=== PATIENT | female | born 1960 | race Hispanic/Latino ===

== ENCOUNTER 2017-05-28 12:20 | Inpatient (IN) | payer MEDICARE ==
[~2017-05-28] VITALS: Ht 157.5 cm; Wt 82.5 kg
[2017-05-28] MEDS ORDERED: ONDANSETRON HCL MDV 20ML 2 MG/ML VIAL ONE (12:44)
[2017-05-28 12:52] LABS: BASOPHILS % (AUTO) 0.3 % (0.0-5.0); EOSINOPHILS % (AUTO) 2.3 % (0.0-8.0); HEMATOCRIT 38.3 % (36-48); LYMPHOCYTES % (AUTO) 16.9 % (21.0-51.0); MEAN CORPUSCULAR HEMOGLOBIN 29.9 pg (27.0-33.0); MEAN CORPUSCULAR HGB CONC 35.2 g/dL (32.0-36.0); NEUTROPHILS % (AUTO) 75.5 % (40.0-77.0); PLATELET COUNT (AUTO) 329 K/uL (130-400); RED BLOOD CELL COUNT(AUTO) 4.51 MIL/uL (4.00-5.50); RED CELL DISTRIBUTION WIDTH 12.9 % (11.0-15.5); WHITE BLOOD COUNT (AUTO) 9.7 K/uL (4.8-10.8)
[2017-05-28 12:57] LABS: APPEARANCE,URINE Clear (CLEAR); BILIRUBIN,URINE Negative (NEGATIVE); COLOR,URINE Yellow (YELLOW); GLUCOSE, URINE (UA) Negative (NEGATIVE); KETONES,URINE Negative (NEGATIVE); LEUKOCYTE ESTERASE ,URINE Negative (NEGATIVE); NITRATE,URINE Negative (NEGATIVE); OCCULT BLOOD,URINE Negative (NEGATIVE); PROTEIN,URINE Negative (NEGATIVE); UROBILINOGEN,URINE 0.2 mg/dL (0.2-1.0)
[2017-05-28 13:03] LABS: CREATININE 0.9 mg/dL (0.5-1.5); POTASSIUM 3.8 mmol/L (3.5-5.1)
[2017-05-28 13:10] LABS: ALBUMIN 3.6 g/dL (3.5-5.0); BILIRUBIN,TOTAL 0.3 mg/dL (0.2-1.0); TOTAL PROTEIN, SERUM 7.7 g/dL (6.0-8.3)
[2017-05-28 13:23] LABS: CREATINE KINASE MB 0.5 ng/mL (0.5-3.6); CREATINE KINASE, TOTAL 61 U/L (21-232); MYOGLOBIN 26 ng/mL (10-92); TROPONIN I < 0.04 ng/mL (0.00-0.06)
[2017-05-28] MEDS ORDERED: HYOSCYAMINE SULFATE 0.125 MG TAB.SUBL SL ONE (14:57)
[2017-05-28 15:41] LABS: HEMATOCRIT 35.3 % (36-48)
[2017-05-28] MEDS ORDERED: METRONIDAZOLE 500 MG TABLET ONE (16:42)
[2017-05-28] MEDS ORDERED: LEVOFLOXACIN 500 MG/D5W 100 ML 100 ML ONE (16:49)
[2017-05-28] MEDS ORDERED: HYDROMORPHONE 1 MG/1 ML AMP ONE (16:49)
[2017-05-28] MEDS ORDERED: SODIUM CHLORIDE 0.9% 1000ML 1,000 ML IV ONE (18:02)
[2017-05-28] MEDS ORDERED: VANCOMYCIN 1GM+NS 250ML 250 ML IV ONE (21:58)
[2017-05-28 22:33] VITALS: BP 108/67
[2017-05-28] MEDS ORDERED: HYDROMORPHONE HCL 0.5 MG/0.5 ML ML ONE (23:39)
[2017-05-29] MEDS ORDERED: ACETAMINOPHEN 325 MG TAB PO PRN ×2 (00:15)
[2017-05-29] MEDS: SODIUM CHLORIDE 0.9% 1000ML 1,000 ML IV SCH ×3 (00:15→20:15)
[2017-05-29] MEDS ORDERED: HYDROMORPHONE 1 MG/1 ML AMP IVP PRN (00:15)
[2017-05-29] MEDS ORDERED: VANCOMYCIN PROTOCOL PER PHARMACY IV SCH (00:30)
[2017-05-29] MEDS: LEVOFLOXACIN 500 MG/D5W 100 ML 100 ML IV SCH (00:46)
[2017-05-29] MEDS ORDERED: VANCOMYCIN 1GM+NS 250ML 250 ML IV SCH (01:00)
[2017-05-29] MEDS: METRONIDAZOLE 500MG/100ML BAG 100 ML IVPB SCH ×3 (01:13→17:02)
[2017-05-29 03:58] VITALS: BP 104/57
[2017-05-29 04:27] LABS: MEAN CORPUSCULAR HEMOGLOBIN 30.7 pg (27.0-33.0); MEAN CORPUSCULAR HGB CONC 36.7 g/dL (32.0-36.0); MEAN CORPUSCULAR VOLUME 83.6 fL (79-99); PLATELET COUNT (AUTO) 303 K/uL (130-400); RED BLOOD CELL COUNT(AUTO) 3.95 MIL/uL (4.00-5.50); RED CELL DISTRIBUTION WIDTH 12.8 % (11.0-15.5); WHITE BLOOD COUNT (AUTO) 9.2 K/uL (4.8-10.8)
[2017-05-29 04:49] LABS: CREATININE 0.9 mg/dL (0.5-1.5); POTASSIUM 3.7 mmol/L (3.5-5.1)
[2017-05-29] MEDS ORDERED: COMPOUND IV REFRIGERATED 1 EACH IVSOLN MISC PRN (06:45)
[2017-05-29 07:00] VITALS: BP 108/59
[2017-05-29] MEDS ORDERED: VANCOMYCIN 1.25 GM in SODIUM CHLORIDE 0.9% 250 ML IV SCH (09:00)
[2017-05-29] MEDS: FAMOTIDINE/PF 20 MG/2 ML VIAL IV SCH ×2 (09:13→23:27)
[2017-05-29] MEDS: HYDROMORPHONE HCL 0.5 MG/0.5 ML ML IVP PRN ×2 (09:47→17:03)
[2017-05-29 12:00] VITALS: BP 99/57
[2017-05-29 16:00] VITALS: BP 119/72
[2017-05-29 19:31] VITALS: BP 111/66
[2017-05-29 23:37] VITALS: BP 122/70
[2017-05-30] MEDS: LEVOFLOXACIN 500 MG/D5W 100 ML 100 ML IV SCH (00:32)
[2017-05-30] MEDS: METRONIDAZOLE 500MG/100ML BAG 100 ML IVPB SCH ×3 (01:26→16:31)
[2017-05-30 03:22] VITALS: BP 132/69
[2017-05-30] MEDS: HYDROMORPHONE HCL 0.5 MG/0.5 ML ML IVP PRN (03:30)
[2017-05-30 04:20] LABS: MEAN CORPUSCULAR HEMOGLOBIN 29.9 pg (27.0-33.0); MEAN CORPUSCULAR HGB CONC 35.6 g/dL (32.0-36.0); MEAN CORPUSCULAR VOLUME 84.1 fL (79-99); PLATELET COUNT (AUTO) 286 K/uL (130-400); RED BLOOD CELL COUNT(AUTO) 3.81 MIL/uL (4.00-5.50); RED CELL DISTRIBUTION WIDTH 12.7 % (11.0-15.5); WHITE BLOOD COUNT (AUTO) 9.2 K/uL (4.8-10.8)
[2017-05-30 04:31] LABS: CREATININE 0.9 mg/dL (0.5-1.5); POTASSIUM 3.4 mmol/L (3.5-5.1)
[2017-05-30] MEDS: SODIUM CHLORIDE 0.9% 1000ML 1,000 ML IV SCH ×2 (05:35→16:38)
[2017-05-30 07:00] VITALS: BP 105/70
[2017-05-30] MEDS: FAMOTIDINE/PF 20 MG/2 ML VIAL IV SCH ×2 (08:38→22:00)
[2017-05-30 11:00] VITALS: BP 114/66
[2017-05-30 15:00] VITALS: BP 122/71
[2017-05-30] MEDS: LOPERAMIDE HCL 2 MG CAP PO PRN ×2 (16:31→22:00)
[2017-05-30] MEDS: DICYCLOMINE HCL 20 MG TAB PO PRN ×2 (16:31→22:00)
[2017-05-30] MEDS ORDERED: POTASSIUM CHLORIDE 10% ELIXIR 20 MEQ/15 ML UDCUP PO PRN (18:15)
[2017-05-30] MEDS ORDERED: POTASSIUM CHLORIDE 20MEQ/100ML 100 ML IV PRN (18:15)
[2017-05-30] MEDS ORDERED: POTASSIUM CHLORIDE 20 MEQ ERTAB PO PRN (18:15)
[2017-05-30] MEDS ORDERED: LIDOCAINE HCL-MPF 1% 2ML VIAL IVP PRN (18:15)
[2017-05-30 19:43] VITALS: BP 102/59
[2017-05-31] VITALS: BP 104/57
[2017-05-31] MEDS: LEVOFLOXACIN 500 MG/D5W 100 ML 100 ML IV SCH (02:40)
[2017-05-31] MEDS: METRONIDAZOLE 500MG/100ML BAG 100 ML IVPB SCH ×2 (02:40→10:03)
[2017-05-31 03:22] VITALS: BP 109/57
[2017-05-31] MEDS: HYDROMORPHONE HCL 0.5 MG/0.5 ML ML IVP PRN (06:44)
[2017-05-31 07:00] VITALS: BP 111/61
[2017-05-31] MEDS: FAMOTIDINE/PF 20 MG/2 ML VIAL IV SCH (10:03)
== END 2017-05-31 11:00 | disposition home or self-care (01) | DRG 392 ==
LOC: EDH 12:20 → EDHIP 16:10 → 3DH 22:33
PROVIDERS: ADMIT Family Medicine; ATTEND Family Medicine
DX: K52.9 Noninfective gastroenteritis and colitis, unspecified (principal); I10 Essential (primary) hypertension; Z86.010 Personal history of colon polyps; Z90.710 Acquired absence of both cervix and uterus
CPT/HCPCS: 36415; 74176; 80048; 80053; 81003; 82150; 82270; 82550; 82553; 83690; 83874; 84484; 85014; 85018; 85025; 85027; 87046; 87177; 87205; 87324; 93005; J1170; J1956; J3370; J3490; J7030

== ENCOUNTER 2017-06-08 16:12 | Inpatient (IN) | payer MEDICARE ==
[~2017-06-08] VITALS: Ht 160 cm; Wt 79.8 kg
[2017-06-08 16:41] LABS: APPEARANCE,URINE Clear (CLEAR); BILIRUBIN,URINE Negative (NEGATIVE); COLOR,URINE Yellow (YELLOW); GLUCOSE, URINE (UA) Negative (NEGATIVE); KETONES,URINE Negative (NEGATIVE); LEUKOCYTE ESTERASE ,URINE Trace (NEGATIVE); NITRATE,URINE Negative (NEGATIVE); OCCULT BLOOD,URINE Negative (NEGATIVE); PH,URINE 6.5 (5.0-8.0); PROTEIN,URINE Negative (NEGATIVE); UROBILINOGEN,URINE 0.2 mg/dL (0.2-1.0)
[2017-06-08 16:46] LABS: BACTERIA,URINE None Seen /HPF (None Seen); RBC,URINE None Seen /HPF (0-1); WBC,URINE 0-1 /HPF (0-1)
[2017-06-08 17:03] LABS: BASOPHILS % (AUTO) 0.2 % (0.0-5.0); EOSINOPHILS % (AUTO) 53.4 % (0.0-8.0); LYMPHOCYTES % (AUTO) 18.8 % (21.0-51.0); MEAN CORPUSCULAR HEMOGLOBIN 30.8 pg (27.0-33.0); MEAN CORPUSCULAR HGB CONC 36.1 g/dL (32.0-36.0); MEAN CORPUSCULAR VOLUME 85.5 fL (79-99); MONOCYTES % (AUTO) 3.1 % (3.0-13.0); NEUTROPHILS % (AUTO) 24.5 % (40.0-77.0); PLATELET COUNT (AUTO) 318 K/uL (130-400); RED CELL DISTRIBUTION WIDTH 13.2 % (11.0-15.5); WHITE BLOOD COUNT (AUTO) 19.2 K/uL (4.8-10.8)
[2017-06-08 17:20] LABS: CREATININE 0.9 mg/dL (0.5-1.5); INR 0.95 (0.85-1.15); PARTIAL THROMBOPLASTIN TIME 25.1 SEC (26.3-35.5); POTASSIUM 4.3 mmol/L (3.5-5.1)
[2017-06-08 17:26] LABS: ALBUMIN 3.3 g/dL (3.5-5.0); BILIRUBIN,TOTAL 0.4 mg/dL (0.2-1.0); TOTAL PROTEIN, SERUM 7.1 g/dL (6.0-8.3)
[2017-06-08] MEDS ORDERED: IOPAMIDOL-370 100 ML VIAL IV ONE (17:56)
[2017-06-08] MEDS ORDERED: ONDANSETRON HCL MDV 20ML 2 MG/ML VIAL ONE (20:41)
[2017-06-08] MEDS ORDERED: MORPHINE SULFATE 2 MG/ML 1ML SYG ONE (20:42)
[2017-06-08] MEDS ORDERED: SODIUM CHLORIDE 0.9% 1000ML 1,000 ML IV ONE (22:53)
[2017-06-09] VITALS (7 sets, daily range): BP systolic 90–134; BP diastolic 50–99
[2017-06-09] MEDS ORDERED: SIMETHICONE 80 MG TAB.CHEW ONE (00:38)
[2017-06-09] MEDS ORDERED: ONDANSETRON HCL MDV 20ML 2 MG/ML VIAL IVP PRN (04:00)
[2017-06-09] MEDS: SODIUM CHLORIDE 0.9% 1000ML 1,000 ML IV SCH ×2 (04:38→21:19)
[2017-06-09 05:58] LABS: HEMATOCRIT 33.4 % (36-48); MEAN CORPUSCULAR HGB CONC 35.3 g/dL (32.0-36.0); PLATELET COUNT (AUTO) 302 K/uL (130-400); RED BLOOD CELL COUNT(AUTO) 3.94 MIL/uL (4.00-5.50); WHITE BLOOD COUNT (AUTO) 17.3 K/uL (4.8-10.8)
[2017-06-09 06:20] LABS: ALBUMIN 2.9 g/dL (3.5-5.0); BILIRUBIN,TOTAL 0.5 mg/dL (0.2-1.0); CREATININE 0.9 mg/dL (0.5-1.5); POTASSIUM 3.9 mmol/L (3.5-5.1); TOTAL PROTEIN, SERUM 6.1 g/dL (6.0-8.3)
[2017-06-09] MEDS: MORPHINE SULFATE 2 MG/ML 1ML SYG IVP PRN ×2 (11:41→21:18)
[2017-06-10 04:00] VITALS: BP 106/61
[2017-06-10 07:00] VITALS: BP 109/62
[2017-06-10] MEDS: SODIUM CHLORIDE 0.9% 1000ML 1,000 ML IV SCH ×3 (10:00→20:29)
[2017-06-10 11:00] VITALS: BP 152/69
[2017-06-10] MEDS ORDERED: MAGNESIUM CITRATE 296 ML SOLUTION PO SCH (15:15)
[2017-06-10] MEDS ORDERED: PROMETHAZINE HCL 25 MG/ML 1ML AMPULE IM PRN (15:15)
[2017-06-10 16:00] VITALS: BP 118/65
[2017-06-10 19:30] VITALS: BP 112/70
[2017-06-10] MEDS: MORPHINE SULFATE 2 MG/ML 1ML SYG IVP PRN (22:30)
[2017-06-10 23:30] VITALS: BP 102/62
[2017-06-11 03:33] VITALS: BP 109/57
[2017-06-11] MEDS: SODIUM CHLORIDE 0.9% 1000ML 1,000 ML IV SCH (04:33)
[2017-06-11 05:58] LABS: HEMATOCRIT 34.5 % (36-48); MEAN CORPUSCULAR HEMOGLOBIN 29.5 pg (27.0-33.0); MEAN CORPUSCULAR HGB CONC 34.8 g/dL (32.0-36.0); MEAN CORPUSCULAR VOLUME 84.8 fL (79-99); PLATELET COUNT (AUTO) 318 K/uL (130-400); RED BLOOD CELL COUNT(AUTO) 4.06 MIL/uL (4.00-5.50); WHITE BLOOD COUNT (AUTO) 7.9 K/uL (4.8-10.8)
[2017-06-11 06:17] LABS: ALBUMIN 2.8 g/dL (3.5-5.0); BILIRUBIN,TOTAL 0.6 mg/dL (0.2-1.0); CREATININE 0.9 mg/dL (0.5-1.5); MAGNESIUM 2.2 mg/dL (1.80-2.40); POTASSIUM 3.8 mmol/L (3.5-5.1); TOTAL PROTEIN, SERUM 6.3 g/dL (6.0-8.3)
[2017-06-11 07:00] VITALS: BP 105/73
[2017-06-11 11:00] VITALS: BP 116/62
[2017-06-14 14:20] LABS: CRYPTOSPORIDIUM EIA STOOL Negative (Negative)
== END 2017-06-11 15:42 | disposition home or self-care (01) | DRG 641 ==
LOC: EDH 16:12 → EDHIP 20:10 → 3DH 06-09 00:53
PROVIDERS: ADMIT Family Medicine; ATTEND Family Medicine
DX: E86.0 Dehydration (principal); D72.1 Eosinophilia; I10 Essential (primary) hypertension; K59.00 Constipation, unspecified; Z90.710 Acquired absence of both cervix and uterus; Z88.8 Allergy status to other drugs, medicaments and biological substances; Z28.21 Immunization not carried out because of patient refusal
CPT/HCPCS: 36415; 74177; 80053; 81001; 83690; 83735; 85025; 85027; 85610; 85730; 87046; 87177; 87205; 87324; 87328; 87507; J7030; Q9967

== ENCOUNTER 2017-09-18 09:04 | Emergency (ER) | payer MEDICARE ==
[2017-09-18] MEDS ORDERED: GUAIFENESIN-DM 200/20 MG 10 ML ONE (09:26)
[2017-09-18] MEDS ORDERED: BENZONATATE 100 MG CAPSULE PO ONE (09:27)
== END 2017-09-18 10:29 | disposition home or self-care (01) ==
LOC: EDH 09:04
DX: J06.9 Acute upper respiratory infection, unspecified (principal); H66.92 Otitis media, unspecified, left ear; I10 Essential (primary) hypertension; Z88.8 Allergy status to other drugs, medicaments and biological substances
CPT/HCPCS: 71046

== ENCOUNTER 2017-12-16 10:18 | Emergency (ER) | payer MEDICARE ==
[2017-12-16] MEDS ORDERED: HYDROCODONE/ACETAMINOPHEN 5/325 MG TAB ONE (11:57)
== END 2017-12-16 12:25 | disposition home or self-care (01) ==
LOC: EDH 10:18
DX: S43.491A Other sprain of right shoulder joint, initial encounter (principal); I10 Essential (primary) hypertension; Z88.8 Allergy status to other drugs, medicaments and biological substances; Z90.710 Acquired absence of both cervix and uterus; Z98.890 Other specified postprocedural states; W18.39XA Other fall on same level, initial encounter; Y93.89 Activity, other specified; Y92.89 Other specified places as the place of occurrence of the external cause; Y99.8 Other external cause status
CPT/HCPCS: 73030

== ENCOUNTER 2018-05-21 17:06 | Emergency (ER) | payer MEDICARE ==
[2018-05-21 17:34] LABS: BASOPHILS % (AUTO) 0.8 % (0.0-5.0); EOSINOPHILS % (AUTO) 2.9 % (0.0-8.0); HEMATOCRIT 37.1 % (36-48); LYMPHOCYTES % (AUTO) 37.5 % (21.0-51.0); MEAN CORPUSCULAR HEMOGLOBIN 29.7 pg (27.0-33.0); MEAN CORPUSCULAR HGB CONC 34.4 g/dL (32.0-36.0); MEAN CORPUSCULAR VOLUME 86.5 fL (79-99); MONOCYTES % (AUTO) 7.1 % (3.0-13.0); NEUTROPHILS % (AUTO) 51.7 % (40.0-77.0); PLATELET COUNT (AUTO) 322 K/uL (130-400); RED CELL DISTRIBUTION WIDTH 12.9 % (11.0-15.5); WHITE BLOOD COUNT (AUTO) 7.3 K/uL (4.8-10.8)
[2018-05-21 17:43] LABS: CREATININE 0.8 mg/dL (0.5-1.5)
[2018-05-21 17:46] LABS: INR 0.89 (0.85-1.15); PARTIAL THROMBOPLASTIN TIME 30.8 SEC (26.3-35.5); PROTHROMBIN TIME 9.4 SEC (9.6-11.6)
[2018-05-21 17:48] LABS: ALBUMIN 3.9 g/dL (3.5-5.0); BILIRUBIN,TOTAL 0.3 mg/dL (0.2-1.0); TOTAL PROTEIN, SERUM 7.9 g/dL (6.0-8.3)
== END 2018-05-21 19:44 | disposition home or self-care (01) ==
LOC: EDH 17:06
DX: K92.2 Gastrointestinal hemorrhage, unspecified (principal); K59.00 Constipation, unspecified; I10 Essential (primary) hypertension; Z90.710 Acquired absence of both cervix and uterus; Z98.890 Other specified postprocedural states; Z88.8 Allergy status to other drugs, medicaments and biological substances
CPT/HCPCS: 36415; 74018; 80053; 85025; 85610; 85730; 86850; 86900; 86901

== ENCOUNTER 2018-09-12 15:55 | Emergency (ER) | payer MEDICARE ==
[2018-09-12] MEDS ORDERED: CEPHALEXIN 500 MG CAPSULE ONE (16:27)
== END 2018-09-12 16:38 | disposition home or self-care (01) ==
LOC: EDH 15:55
DX: L03.115 Cellulitis of right lower limb (principal); I10 Essential (primary) hypertension; Z87.891 Personal history of nicotine dependence; Z88.1 Allergy status to other antibiotic agents

== ENCOUNTER → 2018-10-17 | Outpatient (CLI) | payer MEDICARE | END | disposition home or self-care (01) | LOC: RAH 10:17 | PROVIDERS: ATTEND Family Medicine | DX: S81.809A Unspecified open wound, unspecified lower leg, initial encounter (principal); M79.661 Pain in right lower leg; L03.115 Cellulitis of right lower limb; I10 Essential (primary) hypertension; E78.49 Other hyperlipidemia; X58.XXXA Exposure to other specified factors, initial encounter; Y93.89 Activity, other specified; Y92.89 Other specified places as the place of occurrence of the external cause; Y99.8 Other external cause status | CPT/HCPCS: 76882 ==

== ENCOUNTER → 2019-02-06 | Outpatient (CLI) | payer MEDICARE | END | disposition home or self-care (01) | LOC: SHCH 13:28 | PROVIDERS: ATTEND Internal Medicine Cardiovascular Disease | DX: I87.2 Venous insufficiency (chronic) (peripheral) (principal) | CPT/HCPCS: 93970 ==

== ENCOUNTER → 2019-04-13 | Outpatient (CLI) | payer MEDICARE | END | disposition home or self-care (01) | LOC: SHCH 09:05 | PROVIDERS: ATTEND Internal Medicine Cardiovascular Disease | DX: I82.811 Embolism and thrombosis of superficial veins of right lower extremity (principal); Z09 Encounter for follow-up examination after completed treatment for conditions other than malignant neoplasm | CPT/HCPCS: 93971 ==

== ENCOUNTER → 2019-08-31 | Outpatient (CLI) | payer OTHER, MEDICARE | END | disposition home or self-care (01) | LOC: SHCH 10:05 | PROVIDERS: ATTEND Internal Medicine Cardiovascular Disease | DX: R60.0 Localized edema (principal) ==

== ENCOUNTER → 2019-10-07 | Outpatient (CLI) | payer OTHER, MEDICARE | END | disposition home or self-care (01) | LOC: SHCH 09:46 | PROVIDERS: ATTEND Internal Medicine Cardiovascular Disease | DX: I87.2 Venous insufficiency (chronic) (peripheral) (principal) | CPT/HCPCS: 93971 ==

== ENCOUNTER → 2020-10-05 | Outpatient (CLI) | payer OTHER, MEDICARE | END | disposition home or self-care (01) | LOC: SHCH 13:20 | PROVIDERS: ATTEND Internal Medicine Cardiovascular Disease | DX: I87.2 Venous insufficiency (chronic) (peripheral) (principal); K21.9 Gastro-esophageal reflux disease without esophagitis | CPT/HCPCS: 93970 ==

== ENCOUNTER → 2020-10-06 | Outpatient (CLI) | payer OTHER, MEDICARE ==
[~2020-10-06] MED LIST: REGADENOSON 0.4 MG/5 ML PF SYG IVP SCH
== END | disposition home or self-care (01) ==
LOC: SHCH 08:11
PROVIDERS: ATTEND Internal Medicine Cardiovascular Disease
DX: I20.9 Angina pectoris, unspecified (principal); R06.09 Other forms of dyspnea; R07.9 Chest pain, unspecified
CPT/HCPCS: 78452; 93017; 96374; A9500 ×2; J2785

== ENCOUNTER 2020-10-31 08:56 | Day surgery (SDC) | payer OTHER, MEDICARE ==
[2020-10-27 13:02] LABS: BASOPHILS % (AUTO) 0.4 % (0.0-5.0); EOSINOPHILS % (AUTO) 2.5 % (0.0-8.0); HEMATOCRIT 39.6 % (36-48); MEAN CORPUSCULAR HEMOGLOBIN 28.6 pg (27.0-33.0); MEAN CORPUSCULAR HGB CONC 32.8 g/dL (32.0-36.0); MEAN CORPUSCULAR VOLUME 87.2 fL (79-99); NEUTROPHILS % (AUTO) 58.4 % (40.0-77.0); PLATELET COUNT (AUTO) 320 K/uL (130-400); RED BLOOD CELL COUNT(AUTO) 4.54 MIL/uL (4.00-5.50); RED CELL DISTRIBUTION WIDTH 12.6 % (11.0-15.5); WHITE BLOOD COUNT (AUTO) 7.5 K/uL (4.8-10.8)
[2020-10-27 13:04] LABS: APPEARANCE,URINE Clear (CLEAR); BILIRUBIN,URINE Negative (NEGATIVE); COLOR,URINE Yellow (YELLOW); GLUCOSE, URINE (UA) Negative (NEGATIVE); KETONES,URINE Negative (NEGATIVE); LEUKOCYTE ESTERASE ,URINE Trace (NEGATIVE); NITRATE,URINE Negative (NEGATIVE); OCCULT BLOOD,URINE Negative (NEGATIVE); PROTEIN,URINE Negative (NEGATIVE); UROBILINOGEN,URINE 0.2 mg/dL (0.2-1.0)
[2020-10-27 13:10] LABS: POTASSIUM 4.2 mmol/L (3.5-5.1)
[2020-10-27 13:13] LABS: INR 0.95 (0.85-1.15); PROTHROMBIN TIME 10.4 SEC (9.6-11.6)
[2020-10-27 13:14] LABS: PARTIAL THROMBOPLASTIN TIME 28.2 SEC (26.3-35.5)
[2020-10-27 13:18] LABS: BACTERIA,URINE Rare /HPF (None Seen); RBC,URINE 0-1 /HPF (0-1); SQUAMOUS EPITHELIAL CELL,UR Few /HPF (0-2); WBC,URINE 0-1 /HPF (0-1)
[2020-10-28 11:44] VITALS: BP 114/68
[2020-10-31] VITALS (10 sets, daily range): BP systolic 94–117; BP diastolic 39–66
[~2020-10-31] VITALS: Ht 160 cm; Wt 83.2 kg
[~2020-10-31 08:56] MED LIST changes: +0.9%NACL 1000ML 1,000 ML IV SCH; +ALBU2.5V2 IH; +ESOM20CA39 PO; +FURO20TA4 PO; +LINA290C PO; +LIPA1CAP18 PO; +LISI20TA24 PO; +METF-444 PO; +PREDNISONE PO; +PREG25CA18 PO; -REGADENOSON 0.4 MG/5 ML PF SYG IVP SCH; +SIMV-43 PO
[2020-10-31] MEDS ORDERED: NITROGLYCERIN 2 MG VIAL IV ONE (12:05)
[2020-10-31] MEDS ORDERED: MIDAZOLAM HCL 1 MG/ML 2ML VIAL ONE (12:05)
[2020-10-31] MEDS ORDERED: IOHEXOL-350 50ML VIAL IV ONE (12:05)
[2020-10-31] MEDS ORDERED: IOHEXOL 350 MG/ML 100ML INFUS..BTL IV ONE (12:05)
[2020-10-31] MEDS ORDERED: LIDOCAINE HCL 400MG/20ML VIAL ONE (12:06)
[2020-10-31] MEDS ORDERED: FENTANYL CITRATE PF 50 MCG/1 ML 2ML VIAL ONE (12:06)
[2020-10-31] MEDS ORDERED: GLUCAGON 1MG KIT 1 MG ML IM PRN (13:30)
[2020-10-31] MEDS ORDERED: 0.9%NACL 1000ML 1,000 ML IV SCH (13:30)
[2020-10-31] MEDS ORDERED: NITROGLYCERIN 0.4 MG SL TAB SL PRN (13:30)
[2020-10-31] MEDS ORDERED: DEXTROSE 50%-WATER 50 ML DISP.SYRIN IV PRN (13:30)
[2020-10-31] MEDS ORDERED: INSULIN HUMULIN R 100 UNIT/ML 3ML SQ SCH (16:30)
== END 2020-10-31 18:10 | disposition home or self-care (01) ==
LOC: DAH 08:56 → EDSTATUS 12:00 → DAH 18:10
PROVIDERS: ATTEND Internal Medicine Cardiovascular Disease
DX: I25.10 Atherosclerotic heart disease of native coronary artery without angina pectoris (principal); I11.9 Hypertensive heart disease without heart failure; E78.5 Hyperlipidemia, unspecified; E11.51 Type 2 diabetes mellitus with diabetic peripheral angiopathy without gangrene; E66.9 Obesity, unspecified; I87.2 Venous insufficiency (chronic) (peripheral); Z98.890 Other specified postprocedural states; Z90.710 Acquired absence of both cervix and uterus; Z87.891 Personal history of nicotine dependence; Z83.3 Family history of diabetes mellitus; Z82.49 Family history of ischemic heart disease and other diseases of the circulatory system; Z88.3 Allergy status to other anti-infective agents; Z68.32 Body mass index [BMI] 32.0-32.9, adult; Z79.01 Long term (current) use of anticoagulants; Z79.899 Other long term (current) drug therapy
CPT/HCPCS: 36415; 80048; 81001; 82948; 85025; 85610; 85730; 93005; 93460; A4215; A4216; A4221; A4222; A4223 ×3; A4606; A4663; C1760; C1769; C1894 ×3; J1644 ×2; J2250; J3010; J3490 ×2; J7030; Q9965; Q9967 ×2; 96360; 96361; 99156; 99157

== ENCOUNTER 2021-01-24 07:18 | Day surgery (SDC) | payer OTHER, MEDICARE ==
[~2021-01-24] VITALS: Ht 160 cm; Wt 83.0 kg
[~2021-01-24 07:18] MED LIST changes: +0.9%NACL 1000ML 1,000 ML IV ONE; -0.9%NACL 1000ML 1,000 ML IV SCH; +ACET1TAB25 PO; -ALBU2.5V2 IH; -ESOM20CA39 PO; +FLAX100020 PO; +ISOS30TA92 PO; +LACT10SO5 PO; -LINA290C PO; +METO-408 PO; +MVIT PO; -PREDNISONE PO
[2021-01-24 08:36] VITALS: BP 103/60
[2021-01-24] MEDS ORDERED: PROPOFOL 10 MG/ML 20ML VIAL IV ONE ×2 (09:43)
[2021-01-24] MEDS ORDERED: PHENYLEPHRINE HCL 10 MG/ML 1ML VIAL IV ONE (09:50)
[2021-01-24 10:09] VITALS: BP 96/54
[2021-01-24 10:14] VITALS: BP 89/50
[2021-01-24 10:18] VITALS: BP 105/54
[2021-01-24 10:23] VITALS: BP 103/59
== END 2021-01-24 10:50 | disposition home or self-care (01) ==
LOC: ENDO 07:18 → DAH 07:18 → ENDO 10:50
PROVIDERS: ATTEND Internal Medicine
DX: R10.13 Epigastric pain (principal); R68.81 Early satiety; R93.3 Abnormal findings on diagnostic imaging of other parts of digestive tract; K31.89 Other diseases of stomach and duodenum; K86.2 Cyst of pancreas; I10 Essential (primary) hypertension; K21.9 Gastro-esophageal reflux disease without esophagitis; K59.04 Chronic idiopathic constipation; K64.0 First degree hemorrhoids; K57.30 Diverticulosis of large intestine without perforation or abscess without bleeding; K76.0 Fatty (change of) liver, not elsewhere classified; K44.9 Diaphragmatic hernia without obstruction or gangrene; I25.10 Atherosclerotic heart disease of native coronary artery without angina pectoris; E78.5 Hyperlipidemia, unspecified; F32.9 Major depressive disorder, single episode, unspecified; F41.9 Anxiety disorder, unspecified; M81.0 Age-related osteoporosis without current pathological fracture; M19.90 Unspecified osteoarthritis, unspecified site; Z86.73 Personal history of transient ischemic attack (TIA), and cerebral infarction without residual deficits; Z90.710 Acquired absence of both cervix and uterus; Z95.5 Presence of coronary angioplasty implant and graft; Z86.010 Personal history of colon polyps; Z79.899 Other long term (current) drug therapy; Z20.822 Contact with and (suspected) exposure to COVID-19
CPT/HCPCS: 43237; 43239; 82948; 87635; 88305; 88342; A4215 ×2; A4221; A4222; A4223; A4606; A4620; A4657; A4663; C9803; J2370; J2704; J7030

== ENCOUNTER → 2021-02-06 | Outpatient (CLI) | payer OTHER, MEDICARE ==
[~2021-02-06] MED LIST changes: -0.9%NACL 1000ML 1,000 ML IV ONE
== END | disposition home or self-care (01) ==
LOC: RAH 07:51
PROVIDERS: ATTEND Internal Medicine Gastroenterology
DX: K86.2 Cyst of pancreas (principal)
CPT/HCPCS: 76700

== ENCOUNTER 2021-05-29 09:36 | Emergency (ER) | payer OTHER, MEDICARE ==
[~2021-05-29] VITALS: Ht 160 cm; Wt 84.4 kg
[2021-05-29] MEDS ORDERED: LACTATED RINGERS 1000ML 1,000 ML IV SCH (10:00)
[2021-05-29 10:13] LABS: BASOPHILS % (AUTO) 0.4 % (0.0-5.0); EOSINOPHILS % (AUTO) 2.4 % (0.0-8.0); HEMATOCRIT 39.3 % (36-48); LYMPHOCYTES % (AUTO) 27.5 % (21.0-51.0); MEAN CORPUSCULAR HEMOGLOBIN 28.5 pg (27.0-33.0); MEAN CORPUSCULAR HGB CONC 33.3 g/dL (32.0-36.0); MEAN CORPUSCULAR VOLUME 85.6 fL (79-99); MONOCYTES % (AUTO) 5.5 % (3.0-13.0); NEUTROPHILS % (AUTO) 63.8 % (40.0-77.0); PLATELET COUNT (AUTO) 310 K/uL (130-400); RED BLOOD CELL COUNT(AUTO) 4.59 MIL/uL (4.00-5.50); RED CELL DISTRIBUTION WIDTH 12.3 % (11.0-15.5); WHITE BLOOD COUNT (AUTO) 7.8 K/uL (4.8-10.8)
[2021-05-29 10:18] LABS: APPEARANCE,URINE Clear (CLEAR); BILIRUBIN,URINE Negative (NEGATIVE); COLOR,URINE Yellow (YELLOW); GLUCOSE, URINE (UA) Negative (NEGATIVE); KETONES,URINE Negative (NEGATIVE); LEUKOCYTE ESTERASE ,URINE Moderate (NEGATIVE); NITRATE,URINE Negative (NEGATIVE); OCCULT BLOOD,URINE Negative (NEGATIVE); PROTEIN,URINE Negative (NEGATIVE); UROBILINOGEN,URINE 0.2 mg/dL (0.2-1.0)
[2021-05-29 10:25] LABS: BACTERIA,URINE Rare /HPF (None Seen); RBC,URINE 0-1 /HPF (0-1); SQUAMOUS EPITHELIAL CELL,UR Rare /HPF (0-2); WBC,URINE 0-1 /HPF (0-1)
[2021-05-29 10:38] LABS: AMPHET/METH SCREEN,URINE NEGATIVE (NEGATIVE); BARBITURATE SCREEN, URINE NEGATIVE (NEGATIVE); BENZODIAZEPINES SCREEN,URINE NEGATIVE (NEGATIVE); CANNABINOID SCREEN,URINE NEGATIVE (NEGATIVE); COCAINE SCREEN,URINE NEGATIVE (NEGATIVE); OPIATE SCREEN,URINE NEGATIVE (NEGATIVE); PHENCYCLIDINE SCREEN,URINE NEGATIVE (NEGATIVE)
[2021-05-29 10:44] LABS: ALBUMIN 3.9 g/dL (3.5-5.0); BILIRUBIN,TOTAL 0.7 mg/dL (0.2-1.0); POTASSIUM 3.9 mmol/L (3.5-5.1); TOTAL PROTEIN, SERUM 8.6 g/dL (6.0-8.3)
[2021-05-29 11:06] VITALS: BP 103/62
[2021-05-29] MEDS ORDERED: ACET-66 PO (11:25)
[2021-05-29] MEDS ORDERED: CEPH500B PO (11:25)
== END 2021-05-29 11:33 | disposition home or self-care (01) ==
LOC: EDH 09:36
DX: N39.0 Urinary tract infection, site not specified (principal); E11.9 Type 2 diabetes mellitus without complications; E78.00 Pure hypercholesterolemia, unspecified; I10 Essential (primary) hypertension; Z79.84 Long term (current) use of oral hypoglycemic drugs; Z79.899 Other long term (current) drug therapy; Z88.1 Allergy status to other antibiotic agents; Z88.8 Allergy status to other drugs, medicaments and biological substances
CPT/HCPCS: 36415; 80053; 80305; 81001; 82150; 83690; 84484; 85025; 87088; 99283; J7120

== ENCOUNTER → 2021-08-21 | Outpatient (CLI) | payer OTHER, MEDICARE ==
[~2021-08-21] MED LIST changes: +ACET-2079 PO; +ACET-66 PO; -ACET1TAB25 PO; +CEPH500B PO
[2021-08-21 12:31] LABS: CREATININE 1.1 mg/dL (0.5-1.5); POTASSIUM 3.9 mmol/L (3.5-5.1)
[2021-08-21 12:44] LABS: INR 0.93 (0.85-1.15)
[2021-08-21 12:46] LABS: PARTIAL THROMBOPLASTIN TIME 28.5 SEC (26.3-35.5)
[2021-08-22 07:16] LABS: BASOPHILS % (AUTO) 0.6 % (0.0-5.0); EOSINOPHILS % (AUTO) 3.5 % (0.0-8.0); HEMATOCRIT 40.3 % (36-48); LYMPHOCYTES % (AUTO) 33.7 % (21.0-51.0); MEAN CORPUSCULAR HEMOGLOBIN 27.4 pg (27.0-33.0); MEAN CORPUSCULAR HGB CONC 31.5 g/dL (32.0-36.0); MEAN CORPUSCULAR VOLUME 86.9 fL (79-99); MONOCYTES % (AUTO) 5.1 % (3.0-13.0); NEUTROPHILS % (AUTO) 56.8 % (40.0-77.0); PLATELET COUNT (AUTO) 306 K/uL (130-400); RED BLOOD CELL COUNT(AUTO) 4.64 MIL/uL (4.00-5.50); RED CELL DISTRIBUTION WIDTH 13.9 % (11.0-15.5); WHITE BLOOD COUNT (AUTO) 6.9 K/uL (4.8-10.8)
== END | disposition home or self-care (01) ==
LOC: LAB 09:52
PROVIDERS: ATTEND Internal Medicine Cardiovascular Disease
DX: I87.2 Venous insufficiency (chronic) (peripheral) (principal); E78.5 Hyperlipidemia, unspecified; I87.1 Compression of vein; M79.89 Other specified soft tissue disorders; E11.9 Type 2 diabetes mellitus without complications; R60.0 Localized edema; I11.9 Hypertensive heart disease without heart failure; E66.9 Obesity, unspecified; Z68.31 Body mass index [BMI] 31.0-31.9, adult; Z82.49 Family history of ischemic heart disease and other diseases of the circulatory system; Z79.899 Other long term (current) drug therapy; Z98.890 Other specified postprocedural states
CPT/HCPCS: 36415; 80048; 85025; 85610; 85730

== ENCOUNTER → 2021-10-16 | Outpatient (CLI) | payer OTHER, MEDICARE ==
[2021-10-16 12:32] LABS: BASOPHILS % (AUTO) 0.4 % (0.0-5.0); EOSINOPHILS % (AUTO) 3.5 % (0.0-8.0); HEMATOCRIT 39.1 % (36-48); LYMPHOCYTES % (AUTO) 29.9 % (21.0-51.0); MEAN CORPUSCULAR HGB CONC 33.2 g/dL (32.0-36.0); MEAN CORPUSCULAR VOLUME 84.3 fL (79-99); MONOCYTES % (AUTO) 6.2 % (3.0-13.0); NEUTROPHILS % (AUTO) 59.7 % (40.0-77.0); PLATELET COUNT (AUTO) 324 K/uL (130-400); RED BLOOD CELL COUNT(AUTO) 4.64 MIL/uL (4.00-5.50); RED CELL DISTRIBUTION WIDTH 13.8 % (11.0-15.5); WHITE BLOOD COUNT (AUTO) 6.8 K/uL (4.8-10.8)
[2021-10-16 12:42] LABS: CREATININE 0.9 mg/dL (0.5-1.5); INR 0.93 (0.85-1.15); POTASSIUM 4.5 mmol/L (3.5-5.1); PROTHROMBIN TIME 9.9 SEC (9.6-11.6)
[2021-10-16 12:43] LABS: PARTIAL THROMBOPLASTIN TIME 27.5 SEC (26.3-35.5)
== END | disposition home or self-care (01) ==
LOC: LAB 10:04
PROVIDERS: ATTEND Internal Medicine Cardiovascular Disease
DX: E78.5 Hyperlipidemia, unspecified (principal); I87.1 Compression of vein; I11.9 Hypertensive heart disease without heart failure; I60.4 Nontraumatic subarachnoid hemorrhage from basilar artery
CPT/HCPCS: 36415; 80048; 85025; 85610; 85730

== ENCOUNTER → 2022-06-27 | Outpatient (CLI) | payer OTHER, MEDICARE | END | disposition home or self-care (01) | LOC: SHCH 11:01 | PROVIDERS: ATTEND Internal Medicine Cardiovascular Disease | DX: I87.2 Venous insufficiency (chronic) (peripheral) (principal) | CPT/HCPCS: 93970 ==

== ENCOUNTER → 2022-07-12 | Outpatient (CLI) | payer OTHER, MEDICARE | END | disposition home or self-care (01) | LOC: RAH 07:32 | PROVIDERS: ATTEND Family Medicine | DX: K86.2 Cyst of pancreas (principal); R10.9 Unspecified abdominal pain | CPT/HCPCS: 76700 ==